=== PATIENT | female | born 1990 | race Two or more races ===

== ENCOUNTER 2016-10-08 00:39 | Inpatient (IN) | payer MEDICAID, OTHER ==
[~2016-10-08] VITALS: Ht 157.5 cm; Wt 74.0 kg
[~2016-10-08 00:39] MED LIST: PRENATAL VIT
[2016-10-08] MEDS ORDERED: AMPICILLIN 2 GM in SODIUM CHLORIDE 0.9% 50 ML IVPB STA (01:24)
[2016-10-08] MEDS ORDERED: OXYTOCIN 30U/ 0.9% NaCL 500ML 500 ML IV ONE (01:24)
[2016-10-08] MEDS ORDERED: OXYTOCIN 30U/ 0.9% NaCL 500ML 500 ML IV PRN (01:24)
[2016-10-08] MEDS ORDERED: NEWBORN KIT ONE (01:29)
[2016-10-08] MEDS ORDERED: OXYTOCIN 30U/ 0.9% NaCL 500ML 500 ML ONE (01:29)
[2016-10-08] MEDS ORDERED: CALCIUM CARBONATE 500 MG TAB.CHEW PO PRN (01:30)
[2016-10-08] MEDS ORDERED: TERBUTALINE 1 MG/ML, 1ML IVPush PRN (01:30)
[2016-10-08] MEDS ORDERED: FENTANYL PF 100 MCG/2ML IV PRN (01:30)
[2016-10-08] MEDS ORDERED: ONDANSETRON 2MG/ML, 2ML IVPush PRN ×2 (01:30→04:30)
[2016-10-08] MEDS: D5%-LACTATED RINGERS 1,000 ML IV SCH ×2 (01:52→09:52)
[2016-10-08] MEDS: LACTATED RINGERS 1,000 ML IV SCH ×6 (01:54→16:49)
[2016-10-08] MEDS ORDERED: FENTANYL PF 100 MCG/2ML ONE ×3 (01:57→03:47)
[2016-10-08] MEDS: FENTANYL PF 100 MCG/2ML IVPush PRN ×2 (01:58→02:59)
[2016-10-08] MEDS ORDERED: FENTANYL/BUPIV./NS/PF 250 ML EPIDCONT ONE (03:47)
[2016-10-08] MEDS ORDERED: BUPIVACAINE 0.25% ONE (03:47)
[2016-10-08] MEDS ORDERED: FENTANYL/BUPIV./NS/PF 250 ML EPIDCONT SCH (04:24)
[2016-10-08] MEDS ORDERED: LACTATED RINGERS 1,000 ML IVBOLUS PRN (04:30)
[2016-10-08] MEDS ORDERED: EPHEDRINE 50 MG/ML, 1ML IVPush PRN (04:30)
[2016-10-08] MEDS ORDERED: ACETAMINOPHEN 325 MG TABLET ONE ×2 (09:20→09:26)
[2016-10-08] MEDS ORDERED: ACETAMINOPHEN 500 MG TABLET PO ONE (09:30)
[2016-10-08] MEDS: AMPICILLIN 1 GM in SODIUM CHLORIDE 0.9% 50 ML IV SCH ×3 (10:14→14:20)
[2016-10-08] MEDS ORDERED: LIDOCAINE 1%, 20ML ONE (13:58)
[2016-10-08] MEDS ORDERED: MISOPROSTOL 200 MCG TABLET ONE (13:59)
[2016-10-08] MEDS: OXYTOCIN 30U/ 0.9% NaCL 500ML 500 ML IV SCH (15:36)
[2016-10-08] MEDS ORDERED: ONDANSETRON 2MG/ML, 2ML IV PRN (16:00)
[2016-10-08] MEDS ORDERED: MISOPROSTOL 200 MCG TABLET PO PRN (16:00)
[2016-10-08] MEDS ORDERED: MISOPROSTOL 200 MCG TABLET PR PRN (16:00)
[2016-10-08] MEDS ORDERED: OXYcodone/APAP 5/325MG TABLET PO PRN (16:00)
[2016-10-08 17:25] VITALS: BP 110/69
[2016-10-08] MEDS: OXYcodone/APAP 5/325MG TABLET PO PRN ×2 (18:24→22:36)
[2016-10-08] MEDS: IBUPROFEN 600 MG TABLET PO PRN (18:24)
[2016-10-08 21:10] VITALS: BP 111/66
[2016-10-08] MEDS: DOCUSATE 100 MG CAPSULE PO PRN (22:36)
[2016-10-09 00:30] VITALS: BP 105/64
[2016-10-09] MEDS: OXYTOCIN 30U/ 0.9% NaCL 500ML 500 ML IV SCH ×2 (01:36→11:36)
[2016-10-09] MEDS: IBUPROFEN 600 MG TABLET PO PRN ×4 (02:36→21:25)
[2016-10-09] MEDS: OXYcodone/APAP 5/325MG TABLET PO PRN ×5 (02:36→23:59)
[2016-10-09 03:45] VITALS: BP 99/59
[2016-10-09 07:52] VITALS: BP 93/59
[2016-10-09] MEDS ORDERED: PRENATAL VIT/IRON/FA 1 EACH TABLET PO SCH (09:00)
[2016-10-09] MEDS: DOCUSATE 100 MG CAPSULE PO PRN ×2 (09:17→19:24)
[2016-10-09] MEDS: LACTATED RINGERS 1,000 ML IV SCH (09:52)
[2016-10-09 11:51] VITALS: BP 111/70
[2016-10-09 20:00] VITALS: BP 93/58
[2016-10-10] MEDS: OXYcodone/APAP 5/325MG TABLET PO PRN ×2 (04:22→12:55)
[2016-10-10] MEDS: IBUPROFEN 600 MG TABLET PO PRN ×2 (04:22→12:54)
[2016-10-10 07:45] VITALS: BP 104/63
[2016-10-10] MEDS ORDERED: IBUP-1222 PO (12:12)
[2016-10-10] MEDS ORDERED: DOCU-30 PO (12:13)
[2016-10-10] MEDS ORDERED: OXYC-302 PO (12:13)
== END 2016-10-10 14:24 | disposition home or self-care (01) | DRG 775 ==
LOC: LDOP 00:39 → LDIP 01:25 → 2NW 17:33
PROVIDERS: ADMIT Obstetrics & Gynecology; ATTEND Obstetrics & Gynecology
PROC: 10E0XZZ Delivery of Products of Conception, External Approach (ICD-10-PCS; principal; 2016-10-08)
PROC: 0KQM0ZZ Repair Perineum Muscle, Open Approach (ICD-10-PCS; 2016-10-08)
PROC: 3E0R3CZ (ICD-10-PCS; 2016-10-08)
PROC: 00HU33Z Insertion of Infusion Device into Spinal Canal, Percutaneous Approach (ICD-10-PCS; 2016-10-08)
DX: O99.824 Streptococcus B carrier state complicating childbirth (principal); O34.219 Maternal care for unspecified type scar from previous cesarean delivery; O70.1 Second degree perineal laceration during delivery; Z37.0 Single live birth; Z3A.38 38 weeks gestation of pregnancy
CPT/HCPCS: 36415; 85025; 86850; 86900; 89060; J0290; J3010; J2590; J7120; Q0114

== ENCOUNTER 2018-03-20 16:09 | Emergency (ER) | payer MEDICAID ==
[~2018-03-20] VITALS: Ht 162.6 cm; Wt 72.3 kg
[~2018-03-20 16:09] MED LIST changes: +DOCU-131 PO; +IBUP-1222 PO; +OXYC-302 PO
[2018-03-20 17:07] LABS: MICROSCOPIC AUTO
[2018-03-20 17:14] LABS: BASOPHILS # (AUTO) 0.09 x10^3/uL (0-0.1); BASOPHILS % (AUTO) 1 % (0-1); EOSINOPHILS # (AUTO) 0.52 x10^3/uL (0-0.4); EOSINOPHILS % (AUTO) 4 % (1-7); LYMPHOCYTES # (AUTO) 1.64 x10^3/uL (1-3.4); LYMPHOCYTES % (AUTO) 13 % (22-44); MD NO; MEAN CORPUSCULAR HEMOGLOBIN 26.5 pg (27.0-34.8); MEAN CORPUSCULAR HGB CONC 33.3 g/dL (32.4-35.8); MEAN CORPUSCULAR VOLUME 79.6 fL (80-100); MONOCYTES # (AUTO) 0.78 x10^3/uL (0.2-0.8); MONOCYTES % (AUTO) 6 % (2-9); NEUTROPHILS # (AUTO) 10.08 x10^3/uL (1.8-6.8); NEUTROPHILS % (AUTO) 77 % (42-75); PLATELET COUNT 321 x10^3/uL (130-400); RED BLOOD COUNT 4.58 x10^6/uL (3.82-5.3)
[2018-03-20 17:14] LABS: CULTURE INDICATED? YES
[2018-03-20 17:26] LABS: ALANINE AMINOTRANSFERASE 21 U/L (12-78); ANION GAP 5 mmol/L (5-15); CALCIUM 8.7 mg/dL (8.5-10.1); CHLORIDE 109 mmol/L (98-107); CREATININE 0.72 mg/dL (0.55-1.02)
[2018-03-20 17:29] LABS: ALKALINE PHOSPHATASE 83 U/L (45-117); BILIRUBIN,TOTAL 0.3 mg/dL (0.2-1.0); TOTAL PROTEIN 7.1 g/dL (6.4-8.2)
[2018-03-20 19:00] VITALS: BP 105/63
== END 2018-03-20 19:12 | disposition home or self-care (01) ==
LOC: ED 16:52
DX: O23.12 Infections of bladder in pregnancy, second trimester (principal); Z3A.18 18 weeks gestation of pregnancy
CPT/HCPCS: 36415; 76815; 80053; 81001; 85025; 87086; 99284

== ENCOUNTER 2018-03-20 19:19 | Outpatient (CLI) | payer MEDICAID ==
[~2018-03-20] VITALS: Ht 162.6 cm; Wt 72.2 kg
== END 2018-03-20 20:26 | disposition home or self-care (01) ==
LOC: LDOP 19:19
PROVIDERS: ATTEND Obstetrics & Gynecology
DX: O26.892 Other specified pregnancy related conditions, second trimester (principal); R10.9 Unspecified abdominal pain; Z3A.20 20 weeks gestation of pregnancy
CPT/HCPCS: 59025; 99211; G0463

== ENCOUNTER 2018-07-13 18:07 | Outpatient (CLI) | payer MEDICAID ==
[~2018-07-13] VITALS: Ht 152.4 cm; Wt 80.5 kg
[2018-07-13 18:23] VITALS: BP 111/58
[2018-07-13 19:40] LABS: MICROSCOPIC INDICATED
== END 2018-07-13 21:50 | disposition home or self-care (01) ==
LOC: LDOP 18:07
PROVIDERS: ATTEND Obstetrics & Gynecology
DX: O62.9 Abnormality of forces of labor, unspecified (principal); Z3A.36 36 weeks gestation of pregnancy; R10.9 Unspecified abdominal pain
CPT/HCPCS: 59025; 81001; 87086; 99211; G0463

== ENCOUNTER 2018-08-03 01:24 | Inpatient (IN) | payer MEDICAID ==
[~2018-08-03] VITALS: Ht 162.6 cm; Wt 75.0 kg
[2018-08-03 01:26] VITALS: BP 120/74
[2018-08-03] MEDS ORDERED: FENTANYL/BUPIV./NS/PF 250 ML EPIDCONT SCH ×3 (01:31→02:53)
[2018-08-03] MEDS ORDERED: OXYTOCIN 30U/ 0.9% NaCL 500ML 500 ML IV ONE (01:31)
[2018-08-03] MEDS ORDERED: D5%-LACTATED RINGERS 1,000 ML IV SCH (01:31)
[2018-08-03] MEDS ORDERED: OXYTOCIN 30U/ 0.9% NaCL 500ML 500 ML ONE ×2 (01:34→01:42)
[2018-08-03] MEDS ORDERED: NEWBORN KIT ONE (01:34)
[2018-08-03] MEDS ORDERED: ONDANSETRON 2MG/ML, 2ML ONE (01:41)
[2018-08-03] MEDS ORDERED: FENTANYL PF 100 MCG/2ML ONE ×3 (01:41→02:25)
[2018-08-03] MEDS: LACTATED RINGERS 1,000 ML IV SCH ×4 (01:47→10:53)
[2018-08-03] MEDS ORDERED: FENTANYL PF 100 MCG/2ML IV PRN (02:00)
[2018-08-03] MEDS ORDERED: SODIUM CHLORIDE FLUSH 10ML SYR IVF PRN (02:00)
[2018-08-03] MEDS ORDERED: TERBUTALINE 1 MG/ML, 1ML IVPush PRN (02:00)
[2018-08-03] MEDS ORDERED: METOCLOPRAMIDE 5 MG/ML, 2ML IVPush PRN (02:00)
[2018-08-03] MEDS ORDERED: TERBUTALINE 1 MG/ML, 1ML SQ PRN (02:00)
[2018-08-03] MEDS ORDERED: FENTANYL PF 100 MCG/2ML IVPush PRN (02:00)
[2018-08-03] MEDS ORDERED: FENTANYL PF 500 MCG, BUPIVACAINE/PF 0.5%, 30ML 62.5 ML in SODIUM CHLORIDE 0.9% 177.5 ML EPIDCONT SCH (02:00)
[2018-08-03] MEDS ORDERED: ONDANSETRON 2MG/ML, 2ML IVPush PRN ×2 (02:00→03:00)
[2018-08-03] MEDS ORDERED: ALUMINUM/MAG/SIMETHICONE 30 ML UDC PO PRN (02:00)
[2018-08-03] MEDS ORDERED: CALCIUM CARBONATE 500 MG TAB.CHEW PO PRN (02:00)
[2018-08-03] MEDS ORDERED: SODIUM CITRATE/CITRIC ACID 15 ML UDC PO PRN (02:00)
[2018-08-03 02:08] LABS: BASOPHILS # (AUTO) 0.04 x10^3/uL (0-0.1); BASOPHILS % (AUTO) 0 % (0-1); EOSINOPHILS # (AUTO) 0.18 x10^3/uL (0-0.4); EOSINOPHILS % (AUTO) 1 % (1-7); LYMPHOCYTES # (AUTO) 1.82 x10^3/uL (1-3.4); LYMPHOCYTES % (AUTO) 13 % (22-44); MD NO; MEAN CORPUSCULAR HEMOGLOBIN 28.8 pg (27.0-34.8); MEAN CORPUSCULAR HGB CONC 33.6 g/dL (32.4-35.8); MEAN CORPUSCULAR VOLUME 85.6 fL (80-100); MONOCYTES # (AUTO) 0.64 x10^3/uL (0.2-0.8); MONOCYTES % (AUTO) 5 % (2-9); NEUTROPHILS # (AUTO) 11.31 x10^3/uL (1.8-6.8); NEUTROPHILS % (AUTO) 81 % (42-75); PLATELET COUNT 256 x10^3/uL (130-400); RED BLOOD COUNT 4.72 x10^6/uL (3.82-5.3)
[2018-08-03] MEDS ORDERED: BUPIVACAINE 0.25% ONE ×2 (02:21→02:25)
[2018-08-03] MEDS ORDERED: FENTANYL/BUPIV./NS/PF 250 ML EPIDCONT ONE ×2 (02:21→02:55)
[2018-08-03] MEDS ORDERED: LIDOCAINE/PF 1.5%-EPI 1:200K, 30ML ONE (02:25)
[2018-08-03] MEDS ORDERED: LIDOCAINE 1%-EPI 1:100K, 20ML ONE (02:31)
[2018-08-03] MEDS ORDERED: LACTATED RINGERS 1,000 ML IV SCH (02:53)
[2018-08-03] MEDS ORDERED: LACTATED RINGERS 1,000 ML IVBOLUS PRN ×2 (03:00)
[2018-08-03] MEDS ORDERED: EPHEDRINE 50 MG/ML, 1ML IVPush PRN (03:00)
[2018-08-03] MEDS ORDERED: IBUPROFEN 600 MG TABLET ONE (04:36)
[2018-08-03] MEDS ORDERED: OXYcodone/APAP 5/325MG TABLET ONE (04:36)
[2018-08-03] MEDS: OXYcodone/APAP 5/325MG TABLET PO PRN ×4 (04:39→17:30)
[2018-08-03] MEDS: IBUPROFEN 600 MG TABLET PO PRN ×3 (04:39→17:30)
[2018-08-03] MEDS ORDERED: ACETAMINOPHEN 325 MG TABLET PO PRN ×2 (05:00)
[2018-08-03] MEDS ORDERED: MISOPROSTOL 200 MCG TABLET PR PRN (05:00)
[2018-08-03] MEDS ORDERED: MEASLES,MUMPS&RUBELLA VACC/PF 0.5 ML SQ PRN (05:00)
[2018-08-03] MEDS ORDERED: ONDANSETRON 2MG/ML, 2ML IV PRN (05:00)
[2018-08-03] MEDS: OXYTOCIN 30U/ 0.9% NaCL 500ML 500 ML IV SCH ×2 (05:12→09:00)
[2018-08-03] MEDS ORDERED: METHYLERGONOVINE 0.2 MG/ML IM ONE (05:46)
[2018-08-03] MEDS ORDERED: METHYLERGONOVINE 0.2 MG/ML IM PRN (06:00)
[2018-08-03] MEDS: DOCUSATE 100 MG CAPSULE PO PRN (08:58)
[2018-08-03] MEDS: PRENATAL VIT/IRON/FA 1 EACH TABLET PO SCH (08:58)
[2018-08-03 09:05] VITALS: BP 100/63
[2018-08-03 12:35] LABS: MEAN CORPUSCULAR HEMOGLOBIN 29.1 pg (27.0-34.8); MEAN CORPUSCULAR HGB CONC 33.7 g/dL (32.4-35.8); MEAN CORPUSCULAR VOLUME 86.5 fL (80-100); MEAN PLATELET VOLUME 9.1 fL (7.4-10.4); PLATELET COUNT 255 x10^3/uL (130-400); RED BLOOD COUNT 4.44 x10^6/uL (3.82-5.3); RED CELL DISTRIBUTION WIDTH 16.9 % (9.6-15.2)
[2018-08-03 12:41] VITALS: BP 92/58
[2018-08-03 12:52] LABS: BASOPHILS # (AUTO) 0.04 x10^3/uL (0-0.1); BASOPHILS % (AUTO) 0 % (0-1); EOSINOPHILS # (AUTO) 0.02 x10^3/uL (0-0.4); EOSINOPHILS % (AUTO) 0 % (1-7); LYMPHOCYTES # (AUTO) 1.33 x10^3/uL (1-3.4); LYMPHOCYTES % (AUTO) 8 % (22-44); MD SCAN; MONOCYTES # (AUTO) 0.64 x10^3/uL (0.2-0.8); MONOCYTES % (AUTO) 4 % (2-9); NEUTROPHILS # (AUTO) 15.19 x10^3/uL (1.8-6.8); NEUTROPHILS % (AUTO) 88 % (42-75)
[2018-08-03 16:17] VITALS: BP 97/60
[2018-08-03 20:15] VITALS: BP 95/62
[2018-08-04] MEDS: DOCUSATE 100 MG CAPSULE PO PRN ×2 (00:03→08:35)
[2018-08-04] MEDS: IBUPROFEN 600 MG TABLET PO PRN ×2 (00:03→08:35)
[2018-08-04] MEDS: OXYcodone/APAP 5/325MG TABLET PO PRN ×2 (00:04→08:35)
[2018-08-04 00:08] VITALS: BP 100/65
[2018-08-04] MEDS: OXYTOCIN 30U/ 0.9% NaCL 500ML 500 ML IV SCH ×2 (00:38→10:38)
[2018-08-04] MEDS ORDERED: DIPH,PERTUSS(ACELL),TET VAC/PF NC IM-VACC ONE (07:00)
[2018-08-04] MEDS: PRENATAL VIT/IRON/FA 1 EACH TABLET PO SCH (08:35)
[2018-08-04 08:40] VITALS: BP 96/58
== END 2018-08-04 14:00 | disposition home or self-care (01) | DRG 807 ==
LOC: LDOP 01:24 → LDIP 01:40 → 2NW 09:00
PROVIDERS: ADMIT Obstetrics & Gynecology; ATTEND Obstetrics & Gynecology
PROC: 10E0XZZ Delivery of Products of Conception, External Approach (ICD-10-PCS; principal; 2018-08-03)
PROC: 0HQ9XZZ Repair Perineum Skin, External Approach (ICD-10-PCS; 2018-08-03)
PROC: 3E0R3BZ Introduction of Anesthetic Agent into Spinal Canal, Percutaneous Approach (ICD-10-PCS; 2018-08-03)
PROC: 00HU33Z Insertion of Infusion Device into Spinal Canal, Percutaneous Approach (ICD-10-PCS; 2018-08-03)
DX: O34.211 Maternal care for low transverse scar from previous cesarean delivery (principal); Z37.0 Single live birth; O70.0 First degree perineal laceration during delivery; Z3A.39 39 weeks gestation of pregnancy
CPT/HCPCS: 36415; J3490; 85025; 86850; 86900; 90715; G0378; J2405; J3010; J2590; J7120

== ENCOUNTER → 2019-05-25 | Outpatient (CLI) | payer MEDICAID ==
[~2019-05-25] MED LIST changes: +NONE PER PT
[2019-05-25 12:14] LABS: BASOPHILS # (AUTO) 0.03 x10^3/uL (0-0.1); BASOPHILS % (AUTO) 0 % (0-1); EOSINOPHILS # (AUTO) 0.09 x10^3/uL (0-0.4); EOSINOPHILS % (AUTO) 1 % (1-7); LYMPHOCYTES # (AUTO) 1.63 x10^3/uL (1-3.4); LYMPHOCYTES % (AUTO) 21 % (22-44); MD NO; MEAN CORPUSCULAR HEMOGLOBIN 26.3 pg (27.0-34.8); MEAN CORPUSCULAR HGB CONC 31.9 g/dL (32.4-35.8); MEAN CORPUSCULAR VOLUME 82.4 fL (80-100); MEAN PLATELET VOLUME 9.1 fL (7.4-10.4); MONOCYTES # (AUTO) 0.49 x10^3/uL (0.2-0.8); MONOCYTES % (AUTO) 6 % (2-9); NEUTROPHILS # (AUTO) 5.67 x10^3/uL (1.8-6.8); NEUTROPHILS % (AUTO) 72 % (42-75); PLATELET COUNT 369 x10^3/uL (130-400); RED BLOOD COUNT 4.48 x10^6/uL (3.82-5.3); RED CELL DISTRIBUTION WIDTH 14.5 % (9.6-15.2)
[2019-05-25 12:27] LABS: ALANINE AMINOTRANSFERASE 16 U/L (12-78); ALBUMIN 3.9 g/dL (3.4-5.0); ANION GAP 5 mmol/L (5-15); CALCIUM 8.9 mg/dL (8.5-10.1); CHLORIDE 109 mmol/L (98-107)
[2019-05-25 12:33] LABS: ALKALINE PHOSPHATASE 73 U/L (45-117); BILIRUBIN,TOTAL 0.5 mg/dL (0.2-1.0); CREATININE 0.83 mg/dL (0.55-1.02); TOTAL PROTEIN 7.6 g/dL (6.4-8.2)
[2019-05-25 13:34] LABS: MICROSCOPIC AUTO
[2019-05-25 13:37] LABS: CULTURE INDICATED? YES
== END | disposition home or self-care (01) ==
LOC: STAR 10:53
PROVIDERS: ATTEND Student in an Organized Health Care Education/Training Program
DX: Z01.818 Encounter for other preprocedural examination (principal)
CPT/HCPCS: 36415; 80053; 81001; 84702; 85025; 87086

== ENCOUNTER 2019-05-29 09:32 | Day surgery (SDC) | payer MEDICAID ==
[~2019-05-29] VITALS: Ht 162.6 cm; Wt 65.8 kg
[2019-05-29] MEDS ORDERED: LACTATED RINGERS 1,000 ML IV SCH (09:49)
[2019-05-29] MEDS ORDERED: SCOPOLAMINE 1MG PATCH TD SCH (10:00)
[2019-05-29] MEDS ORDERED: GABAPENTIN 300 MG CAPSULE PO ONE (10:00)
[2019-05-29] MEDS ORDERED: ACETAMINOPHEN 500 MG TABLET PO ONE (10:00)
[2019-05-29 10:05] VITALS: BP 116/83
[2019-05-29 11:04] LABS: HCG UR SG 1.014 (1.003-1.030)
[2019-05-29] MEDS ORDERED: FENTANYL PF 250 MCG/5ML ONE (11:32)
[2019-05-29] MEDS ORDERED: PROPOFOL 50 ML ONE (11:32)
[2019-05-29] MEDS ORDERED: MIDAZOLAM 1 MG/ML, 2ML ONE (11:32)
[2019-05-29] MEDS ORDERED: BUPIVACAINE/PF 0.25% ONE (11:43)
[2019-05-29] MEDS ORDERED: SILVER NITRATE STICK TP ONE (11:43)
[2019-05-29] MEDS ORDERED: EPINEPHRINE 1 MG/ML, 1ML ONE (11:44)
[2019-05-29] MEDS ORDERED: NEOSTIGMINE 1 MG/ML, 10ML ONE (12:04)
[2019-05-29] MEDS ORDERED: ROCURONIUM 10MG/ML,5ML ONE (12:04)
[2019-05-29] MEDS ORDERED: ONDANSETRON 2MG/ML, 2ML ONE (12:04)
[2019-05-29] MEDS ORDERED: DEXAMETHASONE 4 MG/ML, 1ML ONE (12:04)
[2019-05-29] MEDS ORDERED: GLYCOPYRROLATE 0.2MG/1ML, 5ML ONE (12:04)
[2019-05-29] MEDS ORDERED: KETOROLAC 30 MG/1 ML ONE (12:12)
[2019-05-29] MEDS ORDERED: HALOPERIDOL 5 MG/ML IV PRN (12:30)
[2019-05-29] MEDS ORDERED: MEPERIDINE/PF 25MG/ML,1ML IVPush PRN (12:30)
[2019-05-29] MEDS ORDERED: MORPHINE SULFATE 4 MG/ML, 1ML IVPush PRN (12:30)
[2019-05-29] MEDS ORDERED: FENTANYL PF 100 MCG/2ML IV PRN (12:30)
[2019-05-29] MEDS ORDERED: hydrALAzine 20 MG/ML, 1ML IV PRN (12:30)
[2019-05-29] MEDS ORDERED: HYDROmorphone 2 MG/ML, 1ML IVPush PRN (12:30)
[2019-05-29] MEDS ORDERED: OXYcodone 5 MG/5 ML ORAL.SOL UDC PO PRN (12:30)
[2019-05-29] MEDS ORDERED: PROMETHAZINE 25 MG/ML, 1ML IV PRN (12:30)
[2019-05-29] MEDS ORDERED: LABETALOL 5MG/ML, 20ML IV PRN (12:30)
== END 2019-05-29 15:00 | disposition home or self-care (01) ==
LOC: OUT 09:32
PROVIDERS: ATTEND Obstetrics & Gynecology
DX: Z30.2 Encounter for sterilization (principal); N73.6 Female pelvic peritoneal adhesions (postinfective); Z79.899 Other long term (current) drug therapy
CPT/HCPCS: 36415; 58670; 81025; 86850; 86900; 88302; J0171; J1100; J1885; J2250; J2405; J2704; J2710; J3010; J3490; J7120